=== PATIENT | male | born 1970 | race Caucasian/White ===

== ENCOUNTER 2018-08-29 19:20 | Emergency (ER) | payer SELFPAY ==
[2018-08-29 20:29] VITALS: BP 196/116
[2018-08-29] MEDS ORDERED: Benzonatate CAP* 100 MG PO ONE (20:52)
--- NOTE | 2018-08-29 20:52 | UC ---
Throat Pain/Nasal Haile HPI - HPI Summary HPI Summary: Pt presents with c/o PND, cough, nasal congestion, pt c/o gagging on PND while in recumbent position and reprots that he chokes on the PND and then vomitis or dry heaves. PT states that this has been going on X 5 weeks. Is unable to sleep - History of Current Complaint Chief Complaint: UCRespiratory Stated Complaint: COUGH, VOMITING Time Seen by Provider: 08/29/18 20:29 Hx Obtained From: Patient Onset/Duration: Gradual Onset, Lasting Weeks, Still Present Severity: Moderate Pain Intensity: 5 Cough: Nonproductive Associated Signs & Symptoms: Positive: Other - PND - Epiglottits Risk Factors Epiglottis Risk Factors: Negative - Allergies/Home Medications Allergies/Adverse Reactions: Allergies Allergy/AdvReac Type Severity Reaction Status Date / Time No Known Allergies Allergy Verified 08/29/18 20:30 Home Medications: Home Medications Ibuprofen TAB* [Advil TAB*] 200 mg PO Q6H PRN 08/29/18 [History Confirmed ] guaiFENesin LIQ* [Robitussin*] 10 ml PO Q4H PRN 08/29/18 [History Confirmed ] PMH/Surg Hx/FS Hx/Imm Hx Previously Healthy: Yes Psychological History: Anxiety - Surgical History Surgical History: Yes Surgery Procedure, Year, and Place: ear tubes, tonsils - Family History Known Family History: Positive: Cardiac Disease - Social History Occupation: Works From/At Home Lives: With Family Alcohol Use: Daily Alcohol Amount: 6-8 Substance Use Type: None Smoking Status (MU): Former Smoker Have You Smoked in the Last Year: No - Immunization History Vaccination Up to Date: No Review of Systems All Other Systems Reviewed And Are Negative: Yes Constitutional: Positive: Chills, Fatigue Skin: Positive: Negative Eyes: Positive: Negative ENT: Positive: Nasal Discharge, Sinus Congestion, Other - PND Respiratory: Positive: Cough Cardiovascular: Positive: Negative Gastrointestinal: Positive: Negative Genitourinary: Positive: Negative Motor: Positive: Negative Neurovascular: Positive: Negative Musculoskeletal: Positive: Negative Neurological: Positive: Negative Psychological: Positive: Anxious Is Patient Immunocompromised?: No Physical Exam Triage Information Reviewed: Yes Appearance: Other: - tired Vital Signs: Initial Vital Signs Temp 98.4 F 08/29/18 20:21 Pulse 129 08/29/18 20:21 Resp 16 08/29/18 20:21 BP 196/116 08/29/18 20:21 Pulse Ox 100 08/29/18 20:21 Vital Signs Reviewed: Yes Eye Exam: Normal ENT: Positive: Nasal congestion, TM bulging, Other - left TM cerumen Dental Exam: Normal Neck exam: Normal Neck: Positive: Supple, Nontender Respiratory: Positive: No respiratory distress Cardiovascular Exam: Normal Musculoskeletal Exam: Normal Neurological Exam: Normal Psychological Exam: Normal Skin Exam: Normal Throat Pain/Nasal Course/Dx - Differential Dx/Diagnosis Differential Diagnosis/HQI/PQRI: Otitis Media, URI Provider Diagnosis: Post-viral cough syndrome Discharge - Sign-Out/Discharge Documenting (check all that apply): Patient Departure All imaging exams completed and their final reports reviewed: No Studies - Discharge Plan Condition: Stable Disposition: HOME Prescriptions: Benzonatate CAP* [Tessalon 100 MG CAP*] 200 mg PO Q8H PRN #30 cap PRN Reason: Cough Cetirizine HCl 10 ml PO DAILY #100 ml guaiFENesin/CODIEN 100MG-10MG* [Robitussin AC 100Mg-10Mg*] 5 ml PO BEDTIME PRN # 25 ml MDD 5 ml PRN Reason: Cough Oxymetazoline 0.05% NASAL SPR* [Afrin 0.05% NASAL SPRAY*] 1 spray NASAL Q12H 5 Days #1 btl predniSONE TAB* [Deltasone 10 MG TAB*] 30 mg PO DAILY #12 tab Patient Education Materials: Acute Cough (ED), Postnasal Drip (DC) Referrals: Jani Yung MD [Primary Care Provider] - If Needed - Billing Disposition and Condition Condition: STABLE Disposition: Home
== END 2018-08-29 21:07 | disposition home or self-care (01) ==
LOC: UCCORT 19:20
DX: B34.9 Viral infection, unspecified (principal); R05 Cough; F41.9 Anxiety disorder, unspecified; Z87.891 Personal history of nicotine dependence
CPT/HCPCS: 99202; A9270-GY; G0463